=== PATIENT | female | born 1990 | race African-American/Black ===

== ENCOUNTER 2020-10-09 00:06 | Inpatient (IN) | payer OTHER ==
[2020-10-08 23:59] VITALS: BP 109/61
[2020-10-09] VITALS (11 sets, daily range): BP systolic 107–126; BP diastolic 55–83
[~2020-10-09] VITALS: Ht 172.7 cm; Wt 75.8 kg
[~2020-10-09 00:06] MED LIST: PREN200C PO
[2020-10-09 00:44] LABS: HEMATOCRIT 35.4 % (36.0-47.0); HEMOGLOBIN 11.5 g/dl (12.0-15.5); MEAN CORPUSCULAR HEMOGLOBIN 28.8 pg (27.0-33.0); MEAN CORPUSCULAR HGB CONC 32.5 g/dl (32.0-36.5); MEAN CORPUSCULAR VOLUME 88.5 fl (80.0-96.0); PLATELET COUNT, AUTOMATED 157 10^3/uL (150-450); WHITE BLOOD COUNT 7.9 10^3/uL (4.0-10.0)
[2020-10-09] MEDS ORDERED: BICITRA 30ML SOLN UDC PO ONE (00:45)
[2020-10-09] MEDS ORDERED: AZITHROMYCIN INJ 500 MG, VIAL MATE ADAPTER 1 EACH in D5W 250 ML IV ONE (00:45)
[2020-10-09] MEDS ORDERED: ceFAZolin SOD 2 GM in IV 1 EA IV ONE (00:45)
[2020-10-09] MEDS ORDERED: LACTATED RINGER'S 1000 ML IV ONE (00:45)
[2020-10-09] MEDS ORDERED: BUPIVACAINE HCL 0.25% 10ML VIAL SC ONE (01:00)
[2020-10-09] MEDS ORDERED: ACETAMINOPHEN 650 MG SUPP PR SCH (01:00)
[2020-10-09] MEDS ORDERED: ONDANSETRON 4MG/2ML VIAL As Ordered ONE ×2 (01:01→02:30)
[2020-10-09] MEDS ORDERED: KETOROLAC 60MG 2ML VIAL As Ordered ONE (01:01)
[2020-10-09] MEDS ORDERED: dexameTHASONE 4 MG/ML 1ML VIAL (J1100 PER 1MG) As Ordered ONE (01:01)
[2020-10-09] MEDS ORDERED: OXYTOCIN INJ 10 UNITS/ML VIAL (J2590) As Ordered ONE (01:01)
[2020-10-09] MEDS ORDERED: fentaNYL 100 MCG/2 ML INJECTION (J3010) As Ordered ONE (01:02)
[2020-10-09] MEDS ORDERED: MORPHINE PRES-FREE INJ 10 MG/10 ML VIAL (J2274) As Ordered ONE (01:06)
--- NOTE | 2020-10-09 01:14 | HPEPDOC ---
Obstetrical History & Physical General Date of Admission Oct 09, 2020 at 00:06 Primary Care Physician: Pako Kim MD History of Present Illness 0030 HOURS ACTIVE LABOR MODERATE CONTRACTIONS SCHEDULED FOR PRIMARY CS RE IUGR AND LOW LYING PLACENTA AT 38.5 WEEKS Chief Complaint: Active Labor Information Provided By: Patient Age: 29 : 1 Term: 0 Pre-term: 0 Abortions: 0 Livin Care Care: Good Care Number of Visits: 9 Dating Final EDC: Oct 18, 2020 Final EDC for Daily Update: Oct 18, 2020 Final EDC by: LMP LMP: January 12, 2020 1st Trimester Date: Apr 03, 2020 Weeks + Days: 11.5 Estimated Date of Confinement: Oct 18, 2020 EGA at Admission: 38.5 Antepartum Course Diagnos(e)s LOW LYING PLACENTA , IUGR IN LABOR Height (inches): 68 Pre- weight (lbs.): 145 Admission Weight (lbs.): 167 Change in Weight (lbs.): 22 Past Medical History Past Obstetrical History : 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 Past Medical History Surgical History: Denies/None Family History Significant Family History: No pertinent family hx Social History Marital Status: Family situation: Spouse/partner deployed Psychosocial History: No pertinent psych hx * Smoker: non-smoker Alcohol: Denies Drugs: denies Abuse Violence Screening Have you been hit/kicked/slapp: No Have you been sexually assault: No Imunizations Tdap status: current Influenza Status: current Allergies Coded Allergies: No Known Allergies (Unverified , 10/04/20) Medications Scheduled Docosahexanoic Acid ( Dha) 200 Mg Capsule, 200 MG PO DAILY Physical Examination Physical Examination GENERAL: Alert and oriented times three. BREAST: . ABDOMEN: Gravid and non-tender to touch. FETUS: Is vertex (VTX) by sterile vaginal examination (SVE), fetus is vertex (VTX) by Clemente. HEART RATE: Regular rate and rhythm. LUNGS: Clear to auscultation (CTA). EXTREMITIES: No edema. No clonus. Deep tendon reflexes (DTRs) + . Other physical findings SF HEIGHT 40 VERTEX BOWEL SOUNDS ACTIVE. CHEST CLEAR TO BASES, NO DVT PE NO RASHES LESION OR PRURITUS Laboratory Data 24H LABS Laboratory Tests 2 10/08/20 22:51: Serology Scanned Report Hepatitis B Testing 10/09/20 00:30: Nucleated Red Blood Cells % (auto) 0.0 CBC/BMP Laboratory Tests 10/09/20 00:30 Pertinent Laboratoy Data Blood Type: A+ RBC Antibody Screen: Negative HIV: Negative Hepatitis B: Negative Rapid Plasma Reagin: Nonreactive Rubella: Immune Varicella: Immune Chlamydia/Gonorrhea: Negative Group B Streptococcus: Negative Cystic Fibrosis: Negative Anatomy Ultrasound Ultrasound Date: Apr 03, 2020 Placenta Location: Anterior (LOW LYING) Normal Anatomy: Yes Placenta Previa: No Estimated Weight (grams): 2540 Steroid Therapy Steroid Therapy: No Vaginal Examination Dilation: 4 cm Effacement: 80% Station: -3 Cervical Consistency: Soft Cervical Position: Posterior Presentation: Cephalic presentation Assessment Variability: Moderate Accelerations: Positive Decelerations: None Tocometer Contractions: Yes Frequency: regular, every 1-3 min. Strength: palpated as strong Multi-drug resistant Organism: No history of MDRO Assessment/Plan Assessment 29year-old (G1 para (P0 at 38.5 weeks by 11-week ultrasound. Presents to Labor and Delivery (L&D) .ACTIVE LABOR Plan Admit and orient. 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 Diet: NPO Group B Streptococcus (GBS) [negative]. Labs and intravenous (IV) per unit protocol. Counseled on Pitocin POST Lactated Ringers (LR): Bolus 1000 mL, then at 125 mL/hr C-S as SCHEDULED Labor and Delivery Counseling REVIEWED RISK FOR CS HEMORRHAGE INFECTION PERFORATION REOPERATION REMOTE BLOOD TRANSFUSION REMOTE HYSTERECTOMY FOR LIFE THREATENING BLEEDING REMOTE ADMISION NICU AND OR LACERATION. EXPRESSED UNDERSTANDING SIGNED CONSENT 20 MINUTE DISCUSSION Pako Kmi MD Oct 09, 2020 01:14
[2020-10-09] MEDS ORDERED: ONDANSETRON 4MG/2ML VIAL IV PRN ×2 (01:26→03:00)
[2020-10-09] MEDS ORDERED: METOCLOPRAMIDE INJ 10MG/2ML VIAL (J2765 PER 1) IV PRN (01:26)
[2020-10-09] MEDS ORDERED: NALOXONE INJ 0.4MG/1ML VIAL (J2310 PER 1MG) IV PRN ×2 (01:26)
[2020-10-09] MEDS ORDERED: NALBUPHINE HCL 10 MG/ML AMP (J2300) IV PRN (01:26)
[2020-10-09] MEDS ORDERED: diphenhydrAMINE 50MG/ML VIAL (J1200) IV PRN (01:26)
[2020-10-09 01:59] LABS: CORD GAS HCO3 A 22.9 MEQ/L; CORD GAS O2 SAT A 36.5 %; CORD GAS PCO2 A 54.8 mmHg; CORD GAS PH A 7.238 UNITS; CORD GAS PO2 A 20.3 mmHg; CORD GAS SBC A 19.1 MEQ/L; CORD GAS TCO2 A 24.5 MEQ/L
[2020-10-09 02:00] LABS: CORD GAS ABE V -3.2; CORD GAS HCO3 V 23.8 MEQ/L; CORD GAS O2 SAT V 67.5 %; CORD GAS PCO2 V 50.9 mmHg; CORD GAS PH V 7.288 UNITS; CORD GAS PO2 V 29.1 mmHg; CORD GAS SBC V 21.2 MEQ/L; CORD GAS TCO2 V 25.4 MEQ/L
[2020-10-09] MEDS ORDERED: ePHEDrine SULFATE 25 MG/5 ML(5MG/ML) SYRINGE As Ordered ONE (02:04)
[2020-10-09] MEDS ORDERED: PHENYLephrine 500MCG 5ML (100MCG/ML) SYRINGE As Ordered ONE (02:04)
[2020-10-09] MEDS ORDERED: METOCLOPRAMIDE INJ 10MG/2ML VIAL (J2765 PER 1) As Ordered ONE (02:30)
[2020-10-09] MEDS ORDERED: PERCOCET 5MG/325MG TAB PO PRN (02:45)
[2020-10-09] MEDS ORDERED: ACETAMINOPHEN 650 MG SUPP PR PRN (02:45)
[2020-10-09] MEDS ORDERED: MOM 30ML SUSPENSION UDC PO PRN (02:45)
[2020-10-09] MEDS ORDERED: RHOGAM 300 MCG (1500 IU) INJ (J2790) IM SCH (02:45)
[2020-10-09] MEDS ORDERED: IBUPROFEN 600MG TAB PO PRN (02:45)
[2020-10-09] MEDS ORDERED: DOCUSATE SODIUM 100MG CAPSULE PO PRN (02:45)
[2020-10-09] MEDS ORDERED: ACETAMINOPHEN TAB 650MG DOSE (2X325MG) PO PRN (02:45)
[2020-10-09] MEDS ORDERED: ACETAMINOPHEN 500 MG TAB PO PRN (02:45)
[2020-10-09] MEDS ORDERED: ANUSOL HC CREAM 30GM TOP PRN (02:45)
[2020-10-09] MEDS ORDERED: MEASLES,MUMPS,RUBELLA VACCINE INJ (MMR-II) (90707) SC SCH (02:45)
[2020-10-09] MEDS ORDERED: OXYTOCIN DRIP 30 UNITS in IV 1 EA IV ONE (02:45)
[2020-10-09] MEDS ORDERED: METHYLERGONOVINE MALEATE 0.2 MG TAB PO PRN (02:45)
[2020-10-09] MEDS ORDERED: IBUPROFEN 800 MG TAB PO PRN (02:45)
[2020-10-09] MEDS ORDERED: fentaNYL 100 MCG/2 ML INJECTION (J3010) IV PRN (03:00)
[2020-10-09] MEDS ORDERED: oxyCODONE 5MG TAB PO PRN (03:00)
[2020-10-09] MEDS ORDERED: KETOROLAC 30 MG/ML 1ML VIAL IV PRN (03:00)
[2020-10-09] MEDS: LR 1,000 ML IV SCH ×2 (04:17→11:39)
[2020-10-09] MEDS: KETOROLAC 30 MG/ML 1ML VIAL IV SCH ×3 (08:31→20:04)
[2020-10-09] MEDS: PRENATAL VITAMINS CHEWABLE TABLET PO SCH (08:32)
--- NOTE | 2020-10-09 12:49 | RO ---
OPERATIVE NOTE DATE OF OPERATION: 10/09/2020 PREOPERATIVE DIAGNOSIS: Scheduled primary section for low lying placenta and intrauterine growth restriction. POSTOPERATIVE DIAGNOSIS: Scheduled primary section for low lying placenta, intrauterine growth restriction, and active labor. OPERATION PROPOSED: Primary section. OPERATION PERFORMED: Primary section. ANESTHESIA: Spinal plus local anesthetic for intraperitoneal procedures. ESTIMATED BLOOD LOSS: 400 mL. SURGEON: Dr. Pako Kim WELFARE PROJECT MANAGER: AIDAN COFFEY MD without which the procedure could not be completed, used for extraction, retraction, and visualization. PROCEDURE IN DETAIL: After adequate time out, prep and drape in the supine position, Hoskins catheter in the bladder draining clear urine, acetaminophen suppository 1300 mg per rectum, sequentials in place, antibiotics prophylactically preoperatively, Pfannenstiel incision made two finger breadths above the symphysis pubis passing through abdominal layers, securing hemostasis. Opening the peritoneal cavity, the lower segment was thin. The patient was in active labor. A Mobius was placed. The peritoneal flap was developed, low transverse incision into the uterus, draining clear liquor. Delivered a live female infant using the shoehorn effect with one blade of the forceps to ease the baby out, live female , cord around the body x1 and the neck. Weight 6 pounds 14 ounces, 3120 grams. Apgars 8/9 at one and five minutes respectively. Arterial pH 7.23, base excess -5.0, venous pH 7.28, base excess -3.2. Placenta, 3-vessels, spontaneously delivered under Pitocin. The uterine cavity was swept clean of clots and membranes. It contracted well under Pitocin. The lower segment was oversewn in the usual fashion in two layers, imbricating the second layer. Reperitonealization was performed. With instrument and pad count correct, both ovaries and tubes appeared to be normal. The Mobius was removed. The peritoneum was closed with a continuous 3-0, fascia with 0 subcuticular stitch with Monocryl 3-0. Local anesthetic 0.25% Marcaine, 10 cc into the incisional site. Mepore dressing was placed. Uterus was still well contracted under Pitocin. The patient was sent to the recovery room in good condition. Martina ALLRED
[2020-10-10 02:00] VITALS: BP 104/53
[2020-10-10] MEDS: IBUPROFEN 800 MG TAB PO SCH ×3 (04:18→19:48)
[2020-10-10 06:24] VITALS: BP 132/58
--- NOTE | 2020-10-10 06:24 | IPNPDOC ---
Progress Note Date of Service: Oct 10, 2020 Day#: 1 Progress Note SUBJECT: EDIS is a 29 -year-old 1 now Para 1 POD1 S/P PLCD for Low L grisel Placenta and IUGR of a Female Weight 6 pounds 14 ounces, 3120 grams. Apgars 8/9 at one and five minutes respectively. Arterial pH 7.23, base excess -5.0,venous pH 7.28, base excess -3.2, doing well day #1. She has been ambulating, voiding spontaneously without issue and tolerating regular diet. Breast feeding without issue. Reports lochia is like a normal period OBJECTIVE: VITAL SIGNS: Within normal limits, afebrile. Alert and oriented times three. Breath sounds clear to auscultation. Heart rate: Regular rate and rhythm, no murmurs, rubs or gallops. Abdomen: Fundus firm at U-2. Soft, NTTP. . ASSESSMENT: EDIS is a 29 -year-old 1 now Para 1 POD1 S/P PLCD for Low Lying Placenta and IUGR of a Female Weight 6 pounds 14 ounces, 3120 grams. Apgars 8/9 at one and five minutes respectively. Arterial pH 7.23, base excess -5.0,venous pH 7.28, base excess -3.2, doing well day #1. Vitals within normal limits, afebrile, hemodynamically stable with no evidence of infection. PLAN: 1. Discharge to home tomorrow. 2. Tylenol and Motrin for pain. 3. Encourage breast feeding and ambulation. 4. undecided about contraception for now- Discussed risks of close interval . can discussed available option at pp appointments 5. Routine PP visit in 6 weeks in clinic. 6. Discussed return precautions at length. VS, I&O, 24H, Fishbone Vital Signs/I&O Vital Signs Date Time Temp Pulse Resp B/P (MAP) Pulse Ox O2 Delivery O2 Flow Rate FiO2 10/10/20 02:00 98.6 90 16 104/53 (70) 99 Room Air I&O- Last 24 Hours up to 6 AM 10/10/20 06:00 Output Total 1575 ml Balance -1575 ml JAYNE ALDRICH MD Oct 10, 2020 06:19
[2020-10-10 07:09] LABS: HEMATOCRIT 31.2 % (36.0-47.0); HEMOGLOBIN 10.2 g/dl (12.0-15.5); MEAN CORPUSCULAR HEMOGLOBIN 29.1 pg (27.0-33.0); MEAN CORPUSCULAR HGB CONC 32.7 g/dl (32.0-36.5); MEAN CORPUSCULAR VOLUME 88.9 fl (80.0-96.0); PLATELET COUNT, AUTOMATED 153 10^3/uL (150-450); RED BLOOD COUNT 3.51 10^6/uL (4.00-5.40); WHITE BLOOD COUNT 13.7 10^3/uL (4.0-10.0)
[2020-10-10] MEDS: PRENATAL VITAMINS CHEWABLE TABLET PO SCH (08:24)
[2020-10-10] MEDS ORDERED: BOOSTRIX/ADACEL VACCINE (DIPHTH/PERTUSS/ACELL/TETANUS) 0.5ML SYR IM ONE (09:00)
[2020-10-10 10:00] VITALS: BP 108/58
[2020-10-10 14:00] VITALS: BP 97/51
[2020-10-10 18:00] VITALS: BP 107/58
[2020-10-10 22:00] VITALS: BP 99/51
[2020-10-11] MEDS: IBUPROFEN 800 MG TAB PO SCH (03:40)
[2020-10-11 05:35] VITALS: BP 98/49
[2020-10-11] MEDS ORDERED: IBUP80TA PO (05:53)
[2020-10-11] MEDS ORDERED: PERCOCET PO (05:53)
--- NOTE | 2020-10-11 05:56 | DS.PDOC ---
Discharge Summary General Date of Admission Oct 09, 2020 at 00:06 Date of Discharge Oct 11, 2020 Discharge Summary HOSPITAL COURSE: Ms. Barajas is a 29 yo G1 now P1 who underwent an uncomplicated PLTCS on 09Oct2020 for low lying placenta and IUGR after being admitted for labor. Her course was unremarkable. On her day of discharge she met all appropriate discharge criteria. She was ambulating, voiding, tolerating a regular diet, and had minimal lochia. DISCHARGE MEDICATIONS: Please see below. ALLERGIES: Please see below. PHYSICAL EXAMINATION ON DISCHARGE: VITAL SIGNS: Please see below. GENERAL: AAOX3, NAD ABDOMINAL EXAMINATION: Fundus firm at U-2. No fundal tenderness. Optifoam dressing in place over incision. Clean/Dry/intact. Minimal tenderness to palpation. No surrounding erythema. EXTREMITIES: No edema PSYCHIATRIC EXAMINATION: Affect appropriate LABORATORY DATA: Please see below. ACTIVITY: Pelvic rest for 6 weeks DIET: Regular DISCHARGE PLAN: Discharge home DISPOSITION: Discharge home on 11Oct2020. DISCHARGE INSTRUCTIONS: 1. Nothing in the vagina for 6 weeks 2. No heavy lifting for 6 weeks ITEMS TO FOLLOWUP ON ON OUTPATIENT: 1. Call to schedule a visit for 6 weeks post delivery 2. Incision check in the office in two weeks DISCHARGE CONDITION: Stable. TIME SPENT ON DISCHARGE: Greater than 20 minutes. Andrews Mckeon DO Vital Signs/I&Os Vital Signs Date Time Temp Pulse Resp B/P (MAP) Pulse Ox O2 Delivery O2 Flow Rate FiO2 10/11/20 05:35 98.8 81 18 98/49 (65) 10/10/20 18:00 99 Room Air Laboratory Data Labs 24H Laboratory Tests 2 10/10/20 06:54: Nucleated Red Blood Cells % (auto) 0.0 CBC/BMP Laboratory Tests 10/10/20 06:54 Discharge Medications Scheduled Docosahexanoic Acid ( Dha) 200 Mg Capsule, 200 MG PO DAILY, (Reported) Ibuprofen (Ibuprofen) 800 Mg Tablet, 800 MG PO Q8H Scheduled PRN Oxycodone/Acetaminophen (Oxycodone-Acetaminophen 5-325) 1 Each Tablet, 1 TAB PO Q4H PRN for MILD/MODERATE PAIN (PS 1-7) Allergies Coded Allergies: No Known Allergies (Unverified , 10/04/20) ANDREWS MCKEON DO Oct 11, 2020 05:56
[2020-10-11] MEDS: PRENATAL VITAMINS CHEWABLE TABLET PO SCH (08:03)
== END 2020-10-11 11:50 | disposition home or self-care (01) | DRG 773 ==
LOC: M LDI 00:06 → M OBS 03:46
PROVIDERS: ADMIT Obstetrics & Gynecology; ATTEND Obstetrics & Gynecology
PROC: 10D00Z1 Extraction of Products of Conception, Low, Open Approach (ICD-10-PCS; principal; 2020-10-09 01:14)
DX: O44.43 Low lying placenta NOS or without hemorrhage, third trimester (principal); Z3A.38 38 weeks gestation of pregnancy; Z37.0 Single live birth; O36.5930 Maternal care for other known or suspected poor fetal growth, third trimester, not applicable or unspecified; O75.82 Onset (spontaneous) of labor after 37 completed weeks of gestation but before 39 completed weeks gestation, with delivery by (planned) cesarean section; O69.81X0 Labor and delivery complicated by cord around neck, without compression, not applicable or unspecified; O69.82X0 Labor and delivery complicated by other cord entanglement, without compression, not applicable or unspecified